=== PATIENT | female | born 1985 ===

== ENCOUNTER → 2017-10-18 15:59 | Outpatient (CLI) | payer OTHER, SELFPAY ==
--- NOTE | 2017-10-18 16:01 | DI.US.S_ITS ---
PROCEDURE: US OB >= 14 WEEKS FETUS INDICATIONS: 20 WEEK ANATOMICAL SURVEY OUTSIDE/PRIOR DATING DATA: Last menstrual period (LMP): 05/30/2017. LMP-based estimated date of delivery (NALLELY): 03/06/2018. First dating scan (date and location): 08/23/2017. Estimated date of delivery (NALLELY) from first dating scan: 03/11/2018. TECHNIQUE: Real-time scanning was performed of the fetus, with image documentation and biometric measurements. Endovaginal scanning: None required COMPARISON: [facility], , OB COMPLETE LESS THAN 14 WKS, 08/23/2017, 10:03. FINDINGS: General: A single living intrauterine gestation is present. Presentation: Vertex. Placenta: Placental position is posterior, without previa. Amniotic fluid index: 16.9 cm, normal range is 5-24 cm. heart rate: 137 beats per minute. Maternal cervical canal: 4.1 cm long. Normal lower limit is 2.5 cm. biometrics: Biparietal diameter: 19 weeks 6 days Head circumference: 19 weeks one day Abdominal circumference: 18 weeks 5 days Femur length: 19 weeks 2 days Estimated gestational age from initial scan: 19 weeks 3 days Composite gestational age from present scan: 19 weeks 2 days, normal growth Estimated weight and percentile: 271 g at the 25th percentile Measurement variability for biometric dating: +/- 7 days from 14 weeks to 15 weeks 6 days gestation, +/- 10 days from 16 weeks to 21 weeks 6 days gestation, +/- 2 weeks from 22 weeks to 27 weeks 6 days gestation, +/- 3 weeks for 28 weeks gestation or later. weight reference: 4500 g or EFW >90/95% is considered macrosomia or large for gestational age. EFW <10% is small for gestational age. EFW 5% or less is considered intra-uterine growth restriction. Anatomic survey: Neuro: Ventricles are non-dilated at less than 10 mm. Cisterna magna is normal at 3-11 mm. Cerebellum is normal in size and morphology. Nuchal skin fold: Normal at less than 6 mm between 14-21 weeks gestational age. Face: Nose and lips, facial profile are normal. Spine: No evidence for spina bifida. Heart: 4-chambered heart is present, with normal ventricular outflow tracts. Diaphragm: Diaphragm is intact. Stomach: Left-sided stomach is present. Kidneys: No hydronephrosis. Normal is less than 5 mm in 2nd trimester, less than 7 mm in 3rd trimester. Cord: 3-vessel cord has orthotopic insertion. Bladder: Normal in size. Extremities: All 4 extremities identified. IMPRESSION: Single, live intrauterine gestation in Vertex lie showing composite gestational age of 19 weeks 2 days, normal growth and normal anatomy. Dictated by: Jamal Zaragoza M.D. on 10/19/2017 at 9:26 Approved by: Jamal Zaragoza M.D. on 10/19/2017 at 9:29
== END ==
PROVIDERS: PCP Family Medicine; Visit Provider Family Medicine
DX: Z34.92 Encounter for supervision of normal pregnancy, unspecified, second trimester (principal); Z3A.19 19 weeks gestation of pregnancy
CPT/HCPCS: 76811

== ENCOUNTER → 2017-10-27 14:23 | Oncology outpatient (ONC) | payer OTHER, SELFPAY ==
[2017-10-27] MEDS: LACTATED RINGERS 1,000 ML 1000 ML IV (15:01)
[2017-10-27 16:06] VITALS: BP 120/65; PULSE 71; RESP 16; TEMP 37.1; O2SAT 100
== END ==
LOC: ONC 14:24
PROVIDERS: PCP Family Medicine; Visit Provider Family Medicine
DX: O21.0 Mild hyperemesis gravidarum (principal)
CPT/HCPCS: 96360

== ENCOUNTER → 2017-11-30 10:54 | Outpatient (CLI) | payer OTHER, SELFPAY ==
[2017-11-30 12:22] LABS: Hematocrit 38.4 % (36-46); Hemoglobin 13.2 g/dL (12.0-16.0)
[2017-11-30 12:45] LABS: GTT (PREG) 1 Hour PP 50gm Dose 111 mg/dL (76-139)
== END ==
PROVIDERS: PCP Family Medicine; Visit Provider Family Medicine
DX: Z34.92 Encounter for supervision of normal pregnancy, unspecified, second trimester (principal); Z3A.26 26 weeks gestation of pregnancy
CPT/HCPCS: 36415; 82950; 85014; 85018

== ENCOUNTER → 2018-02-07 10:12 | Outpatient (CLI) | payer OTHER, SELFPAY ==
[2018-02-08 08:30] LABS: Strep Grp B PCR POS for Grp B Strep
== END ==
PROVIDERS: PCP Family Medicine; Visit Provider Family Medicine
DX: Z3A.36 36 weeks gestation of pregnancy (principal)
CPT/HCPCS: 87653

== ENCOUNTER 2018-03-10 18:11 | Inpatient (IN) | payer OTHER, SELFPAY ==
[2018-03-10 19:15] LABS: Add Manual Diff / Slide Review NO; Basophils Percent Auto 0.3 % (0-2); Eosinophils Percent Auto 0.6 % (2-4); Hematocrit 37.2 % (36-46); Hemoglobin 12.8 g/dL (12.0-16.0); Lymphocytes Percent Auto 18.4 % (25-40); Mean Corpuscular HGB Conc 34.4 % (30-36); Mean Corpuscular Hemoglobin 31.4 PG (26-34); Mean Corpuscular Volume 91.2 fL (80-100); Neutrophils Absolute Auto 6400 /uL (3000-5900); Neutrophils Percent Auto 74.7 % (50-75); Platelet Count 126 X10^3/uL (150-400); Red Blood Cell Count 4.08 X10^6/uL (4.0-5.2); Red Cell Distribution Width 12.6 % (11.6-14.8); White Blood Cell Count 8.6 X10^3/uL (4.5-11.0)
[2018-03-10 19:42] VITALS: BP 111/67
[2018-03-10] MEDS: DINOPROSTONE VAG (CERVIDIL) 10 MG VAG (19:56)
--- NOTE | 2018-03-11 07:30 | PM.OBHP.1 ---
OB HPI Date/Time Date of admission: 03/10/18 Date Patient Seen: 03/11/18 Time Patient Seen: 07:09 History of Present Condition Chief complaint: INDUCTION : 4 Para: 2 Estimated Date of Delivery: 03/06/18 Estimated Gestational Age (weeks): 40+5 Narrative: Anayeli Swenson is a 32 year old at 40+5 week gestation. has been uncomplicated with good care starting at 12 weeks. Colposcopy during for ASCUS +HPV, benign, recommended pap with HPV . Patient took Zoloft throughout the for anxiety. Indications Indication for induction OB: post dates History of Present care: good care, initiated at week # (12), number of visits (12) and pounds weight gain (35 lbs) Dating criteria: LMP confirmed by 1st trimester US Ultrasounds: normal mid trimester US Obstetrical complications: hyperemesis (first and second trimesters) Medical complications: none Preadmission Labs Blood type: O (+) positive -: Antibody screen: negative, GBS status: positive, HBsAG: negative, HIV: negative, HSV 1: positive, HSV 2: negative and RPR/VDLR: negative -: Chlamydia screen: not detected and Gonorrhea screen: not detected -: Rubella: immune and Varicella: immune HCT: 38.4 HCAB: negative PAP: Abnormal Quad screen: Normal Urine: Negative 1 hr GTT: 111 Prior (ies) History: 01/2001 36 weeks, female, 6#7oz, induction for ROM 11/2001 33 weeks, male, 4#3oz, labor for chorio 02/2017 SAB 6 weeks Evaluation Evaluation Baseline heart rate: 120 Variability: Moderate (11-25) monitor accelerations: Present monitor decelerations: Absent Uterine Contraction Intensity: Mild Category of Tracing: I Cervical dilation (cm): 2 Cervical effacement (%): 50 station: -3 Laboratory results: Laboratory Tests 03/10/18 03/10/18 19:05 19:05 WBC 8.6 RBC 4.08 Hgb 12.8 Hct 37.2 MCV 91.2 MCH 31.4 MCHC 34.4 RDW 12.6 Plt Count 126 L Neut % (Auto) 74.7 Lymph % (Auto) 18.4 L [place] % (Auto) 6.0 Eos % (Auto) 0.6 L Baso % (Auto) 0.3 Neut # (Auto) 6400 H Blood Type O Positive Antibody Screen Negative PFSH Medical History Anxiety (Chronic) Family History Brother Mental health problem Mother Age: 60 Hypertension Social History household members: spouse Smoking Status: Never smoker alcohol intake: current well-balanced diet: daily or most days daily servings fruits/ve-1 caffeine: Yes (1-2 caffeine drinks per day) eating out: 1-3 times/week frequency: 3-4 times per week duration: 30-45 minutes/day Meds Home Medications Medication Instructions Recorded Confirmed Type vit-iron fum-folic ac 1 cap PO QDAY #90 cap 07/09/17 Rx [Mynatal] ondansetron [Zofran ODT] 4 mg SUBLINGUAL Q6HP PRN #20 odt 08/13/17 Rx promethazine [Phenergan] 25 mg RC Q6HP PRN #20 tab 08/16/17 Rx sertraline 100 mg tablet 150 mg PO QDAY #90 tab 01/24/18 Rx Allergies Allergy/AdvReac Type Severity Reaction Status Date / Time No Known Drug Allergies Allergy Verified 02/24/18 10:35 Review of Systems Review of Systems All systems reviewed & are unremarkable except as noted in HPI and below Exam Const General: cooperative and healthy appearing [facility] Head: normal to inspection Ears: hearing grossly normal bilaterally Nose: external nose normal Face and sinus: normal facial exam Mouth: oral mucosae normal Throat: posterior oropharynx normal Eyes General: appearance normal, both eyes and all related structures Neck Neck: normal visual inspection Resp Effort & Inspection: normal respiratory effort Auscultation: clear to auscultation bilaterally Cardio Rate: regular rate Rhythm: regular rhythm Heart Sounds: S1 normal, S2 normal and no murmurs GI Other: Gravid External Female Exam: external appearance normal Manual OB Exam: dilated 2, effaced 50% and station (-3) Presentation: vertex Estimated Weight (lbs): 7 Back/Spine/Pelvis Back: normal to inspection Neuro General: alert, awake and oriented x3 Extrem General: normal to inspection and no pedal edema Psych Appearance: grossly normal Objective Labs Result Diagrams: 03/10/18 19:05 Labs: Laboratory Results - last 24 hr 03/10/18 03/10/18 19:05 19:05 WBC 8.6 RBC 4.08 Hgb 12.8 Hct 37.2 MCV 91.2 MCH 31.4 MCHC 34.4 RDW 12.6 Plt Count 126 L Neut % (Auto) 74.7 Lymph % (Auto) 18.4 L [place] % (Auto) 6.0 Eos % (Auto) 0.6 L Baso % (Auto) 0.3 Neut # (Auto) 6400 H Blood Type O Positive Antibody Screen Negative Assessment and Plan (1) 40 weeks gestation of : Current visit: Yes Status: Acute Plan: Plan: 32 year old at 40+5 weeks gestation, GBS positive. Here for postdates induction. s/p Cervadil overnight. Arevalo score of 5. Plan - Start pitocin - GBS prophylaxis - Patient requests epidural eventually
[2018-03-11] MEDS: OXYTOCIN PREMIX 30 UNIT/500 ML PLAST..BAG IV (07:54)
[2018-03-11] MEDS: PENICILLIN G POTASSIUM 5,000,000 UNIT in DEXTROSE 5% IN WATER 250 ML IV (07:54)
[2018-03-11] MEDS: LACTATED RINGERS 1,000 ML 100 ML IV ×2 (07:54→15:31)
[2018-03-11] MEDS: PENICILLIN G POTASSIUM 3,000,000 UNIT/50 ML FROZ.PIGGY 100 UNIT IV ×2 (11:55→16:34)
--- NOTE | 2018-03-11 17:02 | PM.OBPNLAB ---
Date/Time Date Patient Seen: 03/11/18 Time Patient Seen: 17:02 Pain Control Pain control: tolerating well Comments: Just beginning to feel uncomfortable with contractions in the last few minutes. Still quite tolerable. Pelvic Exam Amniotic membrane status: Intact Comments: SVE 2.5/50/-3, cervix is softer though still posterior Contractions Monitor mode: External Pitocin rate (mU/min): 24 Contraction frequency (min): 2 Contraction duration (min): 1 Contraction pattern: Regular Contraction intensity: Mild Status status: Category l Heart Rate Baseline: 130 Monitor Accelerations: Present Monitor Decelerations: Absent Monitor Variability: Moderate Assessment and Plan Assessment: induction ongoing Comments: Patient with slight cervical change on pitocin though not yet in active labor. Continue pitocin. Recheck cervix at 8 pm. If no significant cervical change will turn off pitocin and allow patient to eat then do Cytotec overnight. Plan discussed with nursing.
[2018-03-11] MEDS: ZOLPIDEM 5 MG TABLET PO (21:22)
[2018-03-12] MEDS: miSOPROStol 25 MCG TABLET VAG (00:42)
--- NOTE | 2018-03-12 09:15 | PM.OBPNLAB ---
Date/Time Date Patient Seen: 03/12/18 Time Patient Seen: 08:31 Pain Control Pain control: tolerating well Comments: Slept well overnight. Cytotec placed at midnight and 6:30 AM. Patient reports mild cramping only. Pelvic Exam Comments: SVE 2.5/70/-3 per RN Contractions Contractions on admission: irregular Monitor mode: External Contraction pattern: Irregular Contraction intensity: Mild Status status: Category l Heart Rate Baseline: 130 Monitor Accelerations: Present Monitor Decelerations: Absent Monitor Variability: Moderate Assessment and Plan Assessment: induction ongoing Plan: continuous present management Comments: 32 year old at 40+6 weeks here for postdates induction. S/p 2 doses of Cytotec overnight. Will recheck cervix at 10:30 AM and either give a third dose of Cytotec or restart pitocin.
--- NOTE | 2018-03-12 10:43 | PM.OBPNLAB ---
Date/Time Date Patient Seen: 03/12/18 Time Patient Seen: 10:43 Pain Control Pain control: tolerating well Pelvic Exam Dilation (cm): 3 Effacement (%): 70 station: -3 Amniotic membrane status: Intact Contractions Monitor mode: External Contraction pattern: Irregular Contraction intensity: Mild Assessment and Plan Assessment: induction ongoing Comments: Modest cervical change with Cytotec. Arevalo score of 6. Will start pitocin and AROM when able.
[2018-03-12] MEDS: PENICILLIN G POTASSIUM 3,000,000 UNIT/50 ML FROZ.PIGGY 100 UNIT IV ×3 (15:00→22:26)
--- NOTE | 2018-03-12 17:51 | PM.OBPNLAB ---
Date/Time Date Patient Seen: 03/12/18 Time Patient Seen: 16:30 Pain Control Pain control: tolerating well Pelvic Exam Dilation (cm): 3 Effacement (%): 70 station: -3 Amniotic membrane status: Intact Contractions Monitor mode: External Pitocin rate (mU/min): 12 Contraction frequency (min): 3 Contraction pattern: Regular Contraction intensity: Mild Status status: Category l Heart Rate Baseline: 140 Monitor Accelerations: Present Monitor Decelerations: Absent Monitor Variability: Moderate Assessment and Plan Assessment: induction ongoing Plan: continuous present management Comments:
[2018-03-12] MEDS: LACTATED RINGERS 1,000 ML 150 ML IV (21:15)
--- NOTE | 2018-03-12 22:29 | PM.OBPNLAB ---
Date/Time Date Patient Seen: 03/12/18 Time Patient Seen: 22:20 Pain Control Pain control: tolerating well and epidural Pelvic Exam Dilation (cm): 6 Effacement (%): 80 station: -2 Amniotic membrane status: Ruptured Comments: Contractions Monitor mode: External Contraction frequency (min): 3 Contraction pattern: Regular Contraction intensity: Strong/Firm Status status: Category ll Heart Rate Baseline: 130 Monitor Accelerations: Present Monitor Decelerations: Variable Comments: Early vs late decelerations after SROM and epidural, improved with positioning and oxygen Assessment and Plan Assessment: active labor Plan: continuous present management Comments: Rapid cervical change after SROM with bloody fluid at 8 PM. Doing well with epidural. Expectant management, anticipate Continue GBS prophylaxis
--- NOTE | 2018-03-12 22:55 | PM.OBPNLAB ---
Date/Time Date Patient Seen: 03/12/18 Time Patient Seen: 22:49 Pain Control Pain control: tolerating well and epidural Pelvic Exam Dilation (cm): 9 Effacement (%): 90 station: -1 Amniotic membrane status: Ruptured Contractions Monitor mode: External Pitocin rate (mU/min): 20 Contraction frequency (min): 3 Contraction pattern: Regular Contraction intensity: Strong/Firm Status status: Category ll Heart Rate Baseline: 140 Monitor Accelerations: Present Monitor Decelerations: Late Monitor Variability: Moderate Comments: bloody show Assessment and Plan Assessment: active labor Plan: continuous present management
[2018-03-13] MEDS: LACTATED RINGERS 1,000 ML 150 ML IV (00:08)
--- NOTE | 2018-03-13 00:56 | PM.OBPRVD ---
Delivery date: 03/13/18 Intrapartal events: Deceleration (recurrent deep decerlations to 70s with pushing) Induction method: per pitocin protocol Delivery monitor: external FHT Route of delivery: forceps Indication for instrumentation: nonreassuring FHR tracing Episiotomy description: Midline Laceration description: Perineal - 2nd Degree Delivery repair: vicryl Estimated blood loss (mL): 350 Anesthesia type: Epidural Narrative: VAGINAL DELIVERY NOTE Date 03/13/18 BRIEF HISTORY: Patient is a 32-year-old at 41 weeks who gave on 03/13/18 at 00:17. NALLELY: 03/06/18 Hospital problems: 41 weeks of GBS positive Epidural anesthesia Forcep delivery STAGE I: Labor Induction began with Cervidil on 03/10/18 followed by Pitocin on 03/11/18. Patient received Cytotec the night of 03/11/18 to 03/12/18 and started Pitocin. Active labor began at at 20:12 p.m. SROM occurred at 20:12 with bloody fluid. Patient was complete at 23:13. Stage I duration: 3 hr and 1 min. Patient received an epidural for analgesia. STAGE II: Delivery Patient began pushing at 23:18. There were recurrent deep decelerations with pushing down to the 70's lasting up to 2 minutes with recovery to baseline. Dr. Sandoval was consulted and applied forceps with successful delivery of infants head after midline episiotomy at 00:17 on 03/13/18. Presentation was YAN. The rest of the delivered without difficulty and was placed on mother's abdomen immediately. Apgars were 6 and one minute and 9 at five minutes. was vigorous after delivery. Stage II duration: 59 min. STAGE III: Placenta/Cord Placenta delivered at 00:21 after active management and appeared intact with a three-vessel cord. Pitocin bolus given after delivery. Third stage of labor lasted 4 minutes. Episiotomy with extension to the perineum was repaired with 4-0 vicryl with adequate hemostasis. EBL: 350 ml Needle and sponge counts were correct. The vagina was inspected and no items were left in situ. Patient was doing well with [place], her and at bedside.
[2018-03-13 03:28] VITALS: BP 111/67; PULSE 99; RESP 16; TEMP 36.7
[2018-03-13] MEDS: IBUPROFEN 600 MG TABLET PO ×2 (03:33→13:50)
--- NOTE | 2018-03-13 09:23 | PM.OBPN.1 ---
Subjective - OB Interval history: Patient complains of some right-sided muscle soreness this morning but otherwise feels well. Bleeding is moderate. She has been up to the bathroom and urinated. Tolerating oral intake. Has not yet passed gas. initiated though having some difficulty with latching . Patient comments: pain well controlled and tolerating diet baby status: doing well Date Patient Seen: 03/13/18 Time Patient Seen: 09:10 Exam Vital Signs (past 8 hours): Temperature 99.6? blood pressure 124/71 heart rate 95 respirations 16 Narrative Exam Narrative: General: Awake and alert, no acute distress. HEENT: NCAT, EOMI, moist oral mucosa CV: Regular rate and rhythm, no murmurs, rubs or gallops Lungs: CTAB, no wheezes, rales, or rhonchi Abdomen: Soft, tender to palpation right side of abdomen; bowel tones active; uterus firm 1 cm below umbilicus Extremities: Warm, 1+ edema, 2+ pedal pulses bilaterally Objective Labs Result Diagrams: 03/10/18 19:05 Assessment & Plan (1) 41 weeks gestation of : Status: Acute Current Visit: Yes (2) Forceps delivery: Status: Acute Assessment and plan: day 0 after forceps assisted vaginal delivery for nonreassuring heart tones. Patient doing well. Plan - Routine care - support Current Visit: Yes Time Spent With Patient Total time spent is greater than 50% in coordination of care (as documented) at patient's floor/unit and/or counseling patient: less than 15 minutes
[2018-03-13] MEDS: PRENATAL VIT,CALC/IRON/FOLIC 1 TABLET 1 TAB PO (13:50)
[2018-03-13] MEDS: DOCUSATE 250 MG CAPSULE PO (13:50)
[2018-03-14] MEDS: IBUPROFEN 600 MG TABLET PO ×2 (00:50→08:43)
[2018-03-14 06:03] LABS: Hematocrit 30.4 % (36-46); Hemoglobin 10.7 g/dL (12.0-16.0)
[2018-03-14] MEDS: DOCUSATE 250 MG CAPSULE PO (08:43)
[2018-03-14] MEDS: PRENATAL VIT,CALC/IRON/FOLIC 1 TABLET 1 TAB PO (08:43)
[2018-03-14 10:18] VITALS: BP 111/67; RESP 16; TEMP 36.7
--- NOTE | 2018-03-14 10:36 | PM.OBDS.1 ---
Discharge Providers Date of admission: 03/10/18 18:11 Primary care physician: Meera Langford DO Consults: 03/11/18 07:06 Consult to Anesthesiology Urgent Comment: Consulting Provider: Anesthesiologist Reason for consultation: Pain Management 03/13/18 03:28 Consult to Boiler Mechanic Routine Comment: Discharge provider: Meera Langford DO Discharge Date: 03/14/18 Summary Date Patient Seen: 03/14/18 Time Patient Seen: 10:14 Hospital Course: Patient is a 32 year old [id number] mother s/p forceps assisted vaginal delivery on 03/13/18 at 41 weeks gestation. Patient was brought in for postdates induction. She received Cervadil the night of 03/10/18 followed by pitocin 03/11/18. Given lack of progress with pitocin she was given Cytotec the night of 03/11/18 then started on pitocin again 03/12/18. She progressed rapidly after spontaneous rupture of membranes. Due to deep decelerations with pushing, Dr. Sandoval was consulted and delivered the infant via forceps after episiotomy. did well after delivery and episiotomy was repaired. course has been uncomplicated. going well. Ambulating, voiding, eating and stooling. Bleedin is light. Pain well-controlled with ibuprofen. Counseled patient to call for fevers, severe pain or bleeding through more than a pad an hour. Follow up with Dr. Langford for 6 week visit. Exam General: Well-appearing, NAD CV: RRR, no murmur Lungs: CTAB Abdomen: Soft, NT/ND, bowels active. Uterus firm <1 cm below umbilicus Ext: 1+ edema bilaterally Temperature 98.3 BP 124/79 Pulse 74 Peripartum Data Infant Delivery Method: Assisted Delivery (Forceps) Laceration description: Perineal - 2nd Degree Episiotomy description: Midline complications: none Discharge Diagnosis (1) 41 weeks gestation of : Status: Acute (2) Forceps delivery: Status: Acute Status at Discharge Functional status at discharge: independent ambulation Overall status at discharge: patient is back to baseline Time Spent with Patient Total time spent providing and/or coordinating discharge services: Less than 30 minutes Objective Labs Result Diagrams: 03/14/18 05:52 Labs: Laboratory Results - last 24 hr 03/14/18 05:52 Hgb 10.7 L Hct 30.4 L Discharge Plan Discharge Plan Patient Disposition: Home Discharge Med Rec/Prescriptions Prescriptions: New docusate sodium 250 mg Capsule 250 mg PO DAILY Qty: 30 RF: 0 Continue vit-iron fum-folic ac [Mynatal] 1 EACH capsule 1 cap PO QDAY Qty: 90 RF: 3 ondansetron [Zofran ODT] 4 MG tablet,disintegrating 4 mg Sublingual Q6HP PRNQty: 20 RF: 3 promethazine [Phenergan] 25 MG suppository 25 mg RC Q6HP PRNQty: 20 RF: 3 sertraline 100 mg tablet 150 mg PO QDAY Qty: 90 RF: 3 Follow up/Referrals: Meera Langford DO [Primary Care Provider] - 6 Weeks (Follow up with Dr. Langford on 04-25-2018 at 1:15 pm ) Visit Report/Discharge Packet Stand Alone Forms: Discharge: Care Visit Report Forms: Stroke Signs & Symptoms Discharge Data Primary Care Provider: Meera Langford Attending Provider: Meera Langford Admit Date/Time: 03/10/18 18:11 Discharges patient from system. Discharge Date/Time: 03/14/18 11:40
== END 2018-03-14 11:40 | disposition home or self-care (01) | DRG 807 ==
PROVIDERS: Admitting Provider Family Medicine; PCP Family Medicine; Visit Provider Family Medicine
DX: O48.0 Post-term pregnancy (principal); Z37.0 Single live birth; O99.824 Streptococcus B carrier state complicating childbirth; Z3A.40 40 weeks gestation of pregnancy; O76 Abnormality in fetal heart rate and rhythm complicating labor and delivery; O70.1 Second degree perineal laceration during delivery
CPT/HCPCS: 01967; 36415; 59050; 59400; 85014; 85018; 85025; 86850; 86900; 86901; J2540; J2590

== ENCOUNTER → 2018-04-25 14:00 | Outpatient (CLI) | payer OTHER, SELFPAY ==
[2018-04-25 17:33] LABS: Urine N gonorrhoeae NOT DETECTED
[2018-04-25 17:59] LABS: Urine Chlamydia NOT DETECTED
== END ==
PROVIDERS: PCP Family Medicine; Visit Provider Family Medicine
DX: Z39.2 Encounter for routine postpartum follow-up (principal); Z97.5 Presence of (intrauterine) contraceptive device
CPT/HCPCS: 87491; 87591

== ENCOUNTER → 2019-01-03 09:31 | Outpatient (CLI) | payer OTHER, SELFPAY ==
--- NOTE | 2019-01-03 09:33 | DI.RAD.S_ITS ---
PROCEDURE: XR ANKLE RT MIN 3V INDICATIONS: Right ankle TECHNIQUE: 3 views of the ankle were acquired. COMPARISON: None. FINDINGS: Bones: No fractures or dislocations. Ankle mortise is normally aligned. No suspicious bony lesions. Soft tissues: No tibiotalar joint effusion. Achilles tendon appears normal. IMPRESSION: Normal for age, source of current right ankle pain symptoms is not seen. Dictated by: Mikael Kennedy M.D. on 01/03/2019 at 10:08 Approved by: Mikael Kennedy M.D. on 01/03/2019 at 10:09
== END ==
PROVIDERS: PCP Family Medicine; Visit Provider Nurse Practitioner Family
DX: M25.571 Pain in right ankle and joints of right foot (principal)
CPT/HCPCS: 73610

== ENCOUNTER → 2022-02-25 09:00 | Outpatient (CLI) | payer SELFPAY | PROVIDERS: Referring Provider Internal Medicine; Visit Provider Internal Medicine | DX: Z23 Encounter for immunization (principal) | CPT/HCPCS: 90471; 90686 ==

== ENCOUNTER → 2022-05-06 13:50 | Outpatient (CLI) | payer OTHER, SELFPAY ==
[2022-05-06 17:17] LABS: COVID19 -Nasal RAPID Negative (Negative)
== END ==
PROVIDERS: PCP Family Medicine; Visit Provider Obstetrics & Gynecology
DX: Z20.822 Contact with and (suspected) exposure to COVID-19 (principal); Z01.812 Encounter for preprocedural laboratory examination
CPT/HCPCS: 87635

== ENCOUNTER 2022-05-07 14:37 | Day surgery (SDC) | payer OTHER, SELFPAY ==
[2022-05-06 10:51] VITALS: BMI 30.6
[2022-05-07] VITALS (8 sets, daily range): BP systolic 120–144; BP diastolic 78–109; PULSE 75–100; RESP 14–23; TEMP 36.1–36.6; O2SAT 98–100
--- NOTE | 2022-05-07 | PATH_ITS ---
[facility] Accession Number: [id number] . 01 Material submitted: . PART A: cervix - CONE BIOPSY 3 O'CLOCK ENDOCERVICAL PART B: endocervix - ENDOCERVICAL CURETTAGE . 01 Diagnosis: A. 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 Background low-grade squamous intraepithelial lesion (mild dysplasia/RANI-1). Negative for invasive malignancy. . B. Endocervix, Curettage: Detached strips of dysplastic glandular epithelium, consistent with endocervical adenocarcinoma in situ. V 05/13/2022 1413 Local . 01 Electronically signed: . Oneida Vega MD, Pathologist NPI- [id number] . 01 Gross description: . A. Received in formalin, labeled with the patient's name, , and cone biopsy 3 o'clock, and consists of a circular fragment of cervix with a partially incised area at one edge presumably designating 3 o'clock per the requisition. The specimen measures 2.0 cm from 12 o'clock to 6 o'clock, 2.1 cm from 3 o'clock to 9 o'clock, and is excised to a depth of 1.6 cm. The ectocervix is little, smooth, and glistening. The cervical os is slit-like and measures 1.0 cm in diameter. The endocervical margins are inked orange while the remaining stromal margins are inked blue. The specimen is radially sectioned and submitted entirely as follows: A1: 12-3 o'clock. A2: 3-6 o'clock. A3: 6-9 o'clock. A4: 9-12 o'clock. See diagram. B. Received in formalin, labeled with the patient's name, and endocervical curettings, and consists of multiple little soft tissue fragments admixed with hemorrhagic material aggregating to 3.4 x 1.5 x 0.4 cm. The specimen is filtered into a biopsy bag and submitted entirely in cassette B1. ([id number]) /FRR 05/09/2022 1801 Local . 01 Pathologist provided ICD-10: D06.9 . 01 CPT . 371763, [id number] Specimen Comment: A courtesy copy of this report has been sent to [phone] Performed at: 01 [facility] Cytology [address] [place] [address] [address], [place], [place] [id number] MD Rayshawn Márquez MD Phone: [phone]
[2022-05-07] MEDS: LACTATED RINGERS 1,000 ML 42 ML IV (15:04)
--- NOTE | 2022-05-07 16:10 | PM.PREOP ---
Pre-operative Note COVID-19 COVID-19 status: Negative Result date/Date tested (Pos, Neg/Pending): 05/06/22 Criteria for continued procedure: Non-surgical alternatives not available or appropriate per current SOC Interval Note History & Physical reviewed/Exam performed by Physician: Yes Changes to H&P: No
--- NOTE | 2022-05-07 16:36 | SUR.OPER ---
Lithotomy on padded OR bed, head on pillow, arms secured on padded arm boards at <90 degrees abduction. Legs secured in padded yellow fins stirrups.
[2022-05-07] MEDS: ACETIC ACID 500 ML IRRIG 20 ML TOP (16:39)
--- NOTE | 2022-05-07 17:17 | PM.GYNOP.1 ---
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 Her HPV status has been positive dating back all the way to 2017 with cytology at that time showing AGC-US.? Pap smear in 2018 showed ASC-US later in 2018 her Pap was normal but both were positive for HR HPV.? She has not has a Pap performed since late 2018 until her most recent Pap 03/17/2022.? Colposcopy showed no ectocervical lesions but dense AWE seen in the endocervical canal and ECC demonstrated ?at least? adenocarcinoma in-situ.? After discussion regarding all options, patient is undergoing cold knife conization at this time for this endocervical lesion both as treatment and to rule out the presence of invasive or microinvasive adenocarcinoma of the endocervix.? She presents today for her scheduled surgery. Surgeon: Yash Lindsey Anesthesia Type: General Operative Notes Findings: Patulous cervix without visible lesions. Patient is currently menstruating. IUD strings placed up in KING and retrieved following conization/ECC. Closure Type: not applicable Specimen(s): other (Cone biopsy, ECC) Estimated blood loss (mL): 75 Blood products transfused: none Procedure in detail: With the patient under satisfactory general LMA, in the modified dorsal lithotomy position, the perineum and lower abdomen were prepped and draped in the usual fashion for cold knife conization. A pre-surgical safety time-out was then taken in accordance with [facility] OR protocols. A bivalve speculum was then inserted in the vagina and the cervix was visualized. The anterior lip the cervix was grasped with a single-tooth tenaculum and hemostatic sutures of #1 Chromic catgut were placed at 3, 6, and 9:00. Sharp conization was then carried out with a #11 Blade with an angled knife handle. Specimen obtained was submitted in formalin for pathologic evaluation. ECC was then performed and also submitted as a separate pathologic specimen. Electrocautery was then used to coagulate the cone bed and once fully coagulated with no bleeding points evident, the IUD strings were brought down through the endocervical canal. Surgicel was then sewn into place 1st tying the sutures at 3:00 and 9:00, and then anchoring Surgicel with the 6:00 suture. There was no significant bleeding at the completion of the case and the speculum was then removed along with the single-tooth tenaculum. Patient was then awakened from anesthesia and transferred PACU after having tolerated the procedure well. Complications: none Post-operative Condition: stable Disposition: PACU Plan for aftercare: Routine postoperative care and follow-up scheduled for 2 weeks postop. Patient will be notified of Path results when available with further decisions regarding evaluation/treatment based on the findings from the cone and ECC.
[2022-05-07] MEDS: ACETAMINOPHEN 325 MG TABLET 975 MG PO (17:46)
[2022-05-07] MEDS: OXYCODONE IR 5 MG TABLET PO (17:47)
== END 2022-05-07 18:09 | disposition home or self-care (01) ==
PROVIDERS: PCP Family Medicine; Referring Provider Obstetrics & Gynecology; Visit Provider Obstetrics & Gynecology
PROC: 0UBC7ZZ Excision of Cervix, Via Natural or Artificial Opening (ICD-10-PCS; CPT 57520; principal; 2022-05-07 16:00)
DX: D06.0 Carcinoma in situ of endocervix (principal)
CPT/HCPCS: 57520; 57250; J1885; J2250; J2405; J2704; J3010

== ENCOUNTER 2022-07-16 12:17 | Day surgery (SDC) | payer OTHER, SELFPAY ==
[2022-07-13 08:19] VITALS: BMI 31.2
[2022-07-16 12:38] VITALS: BP 114/76; PULSE 92; RESP 20; TEMP 36.7; O2SAT 97; BMI 30.5
[2022-07-16] MEDS: LACTATED RINGERS 1,000 ML 42 ML IV (12:52)
[2022-07-16 12:54] LABS: COVID19 -Nasal RAPID POSITIVE (Negative)
--- NOTE | 2022-07-16 13:10 | SUR.PREOP ---
Per Lab, patient testing positive for COVID; notified patient and notified Dr Lindsey; surgery canceled due to positive Covid status and non-emergent need. OR coordinator notified. Inpatient nursing staff notified.
== END 2022-07-16 12:20 | disposition home or self-care (01) ==
LOC: OR 12:18
PROVIDERS: PCP Family Medicine; Referring Provider Obstetrics & Gynecology; Visit Provider Obstetrics & Gynecology
DX: D06.0 Carcinoma in situ of endocervix (principal); Z53.09 Procedure and treatment not carried out because of other contraindication; U07.1 COVID-19
CPT/HCPCS: 81025; 87635

== ENCOUNTER 2022-08-20 12:02 | Day surgery (SDC) | payer OTHER, SELFPAY ==
[2022-08-12 15:01] VITALS: BMI 31.2
[2022-08-20] VITALS (11 sets, daily range): BP systolic 128–151; BP diastolic 76–90; PULSE 64–93; RESP 11–18; TEMP 36.1–36.8; O2SAT 93–100; BMI 31.2
--- NOTE | 2022-08-20 | PATH_ITS ---
[facility] Accession Number: [id number] No. of containers..01 Tissue . 01 Material submitted: . uterus - UTERUS, BILATERAL FALLOPIAN TUBES, CERVIX . 01 Diagnosis: Uterus, Cervix And Bilateral Fallopian Tube, Hysterectomy And Bilateral Salpingectomy: 1. 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 2. Size: 0.9 X 0.5 cm (as measured on glass slide). 3. Stromal invasion: 5.5 mm and involving two blocks. 4. Lymphovascular invasion: Suspicious for lymphovascular invasion. 5. Margins: All margins are negative for invasive adenocarcinoma and adenocarcinoma in situ (AIS). 6. Additional findings: Proliferative endometrium; no atypical hyperplasia or malignancy. Complete cross-section of bilateral fimbriated fallopian tubes with benign paratubal cysts. 7. Pathologic stage: pT1b- Invasive carcinoma greater than 5 mm depth of stromal invasion and less than or equal to 2 cm in greatest dimension. 8. See comment. TEN 08/27/2022 1147 Local . 01 Comment: The invasive adenocarcinoma is present in slides A2 and A9 (around the 12 o'clock region) and shows well-demarcated glands in groups with rounded contours. There is complex intraglandular growth with a papillary architecture. Intraluminal necrosis is noted. In addition, there are few atypical glands and small groups of malignant cells from the rounded glands in a focally desmoplastic and inflamed stroma. A focus suspicious for lymphovascular invasion is identified on slide A2. The Romeo pattern of invasion is best interpreted as Type B i.e localized/focal stromal invasion. As part of routine quality inspector, selected slides (A2 and A9) were also reviewed by Dr. Stella Avina, who agrees with the interpretation. . 01 Electronically signed: . Jyoti B Katelynn, MD, Pathologist NPI- [id number] . 01 Gross description: . The specimen is received in formalin labeled with the patient's name, , and uterus, bilateral fallopian tubes, cervix consists of an intact uterus (160 grams, 10.3 cm SI, 7.1 cm ML, and 5.0 cm AP) with attached cervix (3.0 x 2.7 cm), attached left fallopian tube (6.8 x 0.7 cm), attached right fallopian tube (6.7 x 0.9 cm), and no additional adnexa. The ectocervix is little and glistening with a linear defect at the approximate 2 o'clock area measuring 0.7 x 0.3 cm. The cervical os is patulous and measures 0.7 cm in diameter. The anterior paracervical margin is inked blue while the posterior paracervical margin is inked black. The serosa is raymond-little and smooth with no hemorrhage or adhesion identified. The endocervical canal has little herringbone mucosa with no lesions grossly identified, and measures 2.4 cm in length. The endometrial cavity measures 3.3 cm from cornu to cornu and 5.2 cm in length, and is significant for a plastic T-shaped device with dark coiled wire consistent with IUD measuring 3.2 cm across the crossbar and 3.5 cm in length. The placement has the crossbars extending from cornu to cornu and the body extending down into the endometrial cavity. Two wires extend from the end but are found coiled in the endometrial cavity, not extending down into the endocervical cavity. The endometrium is red, hemorrhagic, and averages 0.1 cm thick, and is friable with no polyps or lesions identified. The myometrium is pink to red and trabecular measuring up to 2.1 cm in maximum thickness with no nodules or lesions grossly identified. . . The left fallopian tube has congested smooth serosa with multiple cystic structures near the fimbriated end measuring up to 1.1 cm in greatest dimension filled with clear serous fluid. Sectioning reveals a hemorrhagic stellate lumen. The right fallopian tube has congested smooth serosa with multiple cystic structures measuring up to 0.4 cm in greatest dimension filled with clear serous fluid. Sectioning reveals an unremarkable stellate lumen. . Sheet [employer] sections are submitted as follows: A1-A2: 12 to 3 o'clock cervix. A3-A4: 3 to 6 o'clock cervix. A5-A7: 6 to 9 o'clock cervix. A8-A9: 9 to 12 o'clock cervix. A10: Anterior full-thickness section. A11: Posterior full-thickness section. A12: Sheet [employer] Printer serosa. A13: Left fallopian tube to include one-half of bisected fimbriae and cross-sections. A14: Right fallopian tube to include one-half of bisected fimbriae and cross-sections. ([id number]) /MRV 08/21/2022 1718 Local . 01 Microscopic: . P16 immunostain is strongly and diffusely positive within the invasive adenocarcinoma and adenocarcinoma in situ. Control stains appropriately. . Technical Note: This test and its performance characteristics have been determined by [facility]. It has not been cleared or approved by the U.S. Food and Drug Administration. The FDA has determined that such clearance or approval is not necessary. This test is used for clinical purposes. It should not be regarded as investigational or for research. . 01 Pathologist provided ICD-10: D06.9, N93.9, C53.0 . 01 CPT . 887374 Specimen Comment: A courtesy copy of this report has been sent to [phone] Performed at: 01 [facility] [address] [place] [address], [place], [place] [id number] MD Rayshawn Márquez MD Phone: [phone]
[2022-08-20] MEDS: LACTATED RINGERS 1,000 ML 42 ML IV ×2 (12:29→16:00)
[2022-08-20] MEDS: ACETAMINOPHEN IV 1,000 MG/100 ML VIAL 400 MG IV (12:31)
[2022-08-20] MEDS: SCOPOLAMINE 1 PATCH TOP (12:36)
--- NOTE | 2022-08-20 13:17 | SUR.PREOP ---
Refuses test, has IUD, states has not had intercourse in a long time. ROUTE AIDE and Dr. Olmos notified.
[2022-08-20 13:37] LABS: COVID19 -Nasal RAPID Negative (Negative)
--- NOTE | 2022-08-20 13:42 | P.HPOB_ITS ---
History of Present Illness History of Present Illness Narrative: Anayeli is a 36-year-old 5 para 3, LMP 08/09/2022 who was originally seen for a Pap demonstrated high-grade squamous dysplasia of the cervix.? Colposcopic exam and ECC showed at least adenocarcinoma in-situ of the endocervix and patient subsequently underwent cold knife conization which confirmed adenocarcinoma in-situ but endocervical margins were positive.? After discussion regarding all options patient has decided to proceed with total laparoscopic hysterectomy and bilateral salpingectomy.? She presents today for her scheduled surgery. [facility] Medical History (Updated 05/15/22 @ 11:41 by Yash Lindsey MD) Adenocarcinoma in situ (AIS) of uterine cervix Anxiety Surgical History (Updated 07/13/22 @ 08:22 by Alyssa Lincoln RN) History of conization of cervix (05/07/22) Family History Brother Mental health problem Mother Age: 65 Hypertension Social History household members: spouse and children Smoking Status: Never smoker alcohol intake: current well-balanced diet: daily or most days daily servings fruits/ve-1 caffeine: Yes (1-2 caffeine drinks per day) eating out: 1-3 times/week frequency: 3-4 times per week duration: 30-45 minutes/day Meds Home Medications and Allergies Allergies Allergy/AdvReac Type Severity Reaction Status Date / Time No Known Drug Allergies Allergy Verified 07/16/22 12:40 Review of Systems Review of Systems Narrative: Problem-specific ROS positives included in HPI Exam Vital Signs (past 8 hours): - 08/20/22 12:19 Temperature 97.8 F Pulse Rate 93 H Respiratory Rate 16 Blood Pressure 128/80 Pulse Oximetry 97 Const General: cooperative and comfortable Nutritional Appearance: average body habitus Orientation: alert and oriented x3 HENMT Head: normal to inspection, atraumatic and abrasion Ears: hearing grossly normal bilaterally Face and sinus: face symmetric Eyes General: appearance normal, both eyes and all related structures Conjunctivae: conjunctivae normal Sclera: sclerae normal EOM: EOM intact bilaterally Neck Neck: normal visual inspection Resp Effort & Inspection: normal respiratory effort and able to speak in complete sentences Auscultation: clear to auscultation bilaterally Cardio Rate: regular rate Rhythm: regular rhythm Heart Sounds: S1 normal, S2 normal and no murmurs GI Inspection: normal to inspection Palpation: soft and no hepatosplenomegaly External Female Exam: normal external appearance Speculum Exam - Vagina: normal appearance of the vagina, normal vaginal discharge and no lesions Speculum Exam - Cervix: no lesions, no masses and other (S/P CKC changes) Bimanual Exam- Vagina & Uterus: normal bimanual exam, uterine size normal, uterine shape normal, non-tender and no cervical motion tenderness Bimanual Exam- Adnexa, other: normal adnexae, no masses and non-tender Extrem General: no calf tenderness Psych Appearance: grossly normal Mental Status: mental status grossly normal Speech and Movement: speech and movement normal Mood: congruent mood Affect: normal affect Attitude: cooperative Thought Process: normal Thought Content: normal Judgment: judgment good Objective Labs Labs: Laboratory Results - last 24 hr 08/20/22 12:12 SARS-CoV-2 (PCR) Negative Assessment & Plan Assessment and plan (1) 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 Full understanding of the above, a written consent was executed, signed, and witnessed this date. Time Spent With Patient Time with patient: less than 30 minutes
--- NOTE | 2022-08-20 13:46 | PM.PREOP ---
Pre-operative Note COVID-19 COVID-19 status: Negative Result date/Date tested (Pos, Neg/Pending): 08/20/22 Criteria for continued procedure: Non-surgical alternatives not available or appropriate per current SOC Interval Note History & Physical reviewed/Exam performed by Physician: Yes Changes to H&P: No
[2022-08-20] MEDS: CEFAZOLIN 2 GM/100 ML PREMIX 100 ML IV ×2 (13:59→20:39)
--- NOTE | 2022-08-20 14:23 | SUR.OPER ---
Lithotomy on padded OR bed. Wamic Pad Positioner under torso. Head on pillow, arms padded and tucked at sides. Legs secured in padded yellow fins stirrups. Pt positioned per direction and supervision of Dr Lindsey.
[2022-08-20] MEDS: ROPIVACAINE 0.2% PF 2 MG/ML 10ML AMP 20 ML INJ (14:28)
[2022-08-20] MEDS: BUPIVACAINE 0.25% W/ EPI 30 ML VIAL INJ (14:30)
[2022-08-20] MEDS: OXYCODONE IR 5 MG TABLET PO ×2 (17:00→20:17)
--- NOTE | 2022-08-20 17:01 | P.OP_ITS ---
Operative Date/Time/Diagnoses Date of procedure: 08/20/22 Time of procedure: 14:15 Pre-op diagnosis: Adenocarcinoma in-situ of the endocervix Stress urinary incontinence Post-op diagnosis: same Procedure & Clinicians Procedure: Procedures Operation Date: 08/20/22 13:30 Actual Procedure Side Surgeon p Total Laparoscopic Hysterectomy w. bilateral salpingectomy, Bilateral Yash Lindsey MD s mid-urethral sling, cystoscopy Yash Lindsey MD Indications: Anayeli is a 36-year-old 5 para 3, LMP 08/09/2022 who was originally seen for a Pap demonstrated high-grade squamous dysplasia of the cervix.? Colposcopic exam and ECC showed at least adenocarcinoma in-situ of the endocervix and patient subsequently underwent cold knife conization which confirmed adenocarcinoma in-situ but endocervical margins were positive.? After discussion regarding all options patient has decided to proceed with total laparoscopic hysterectomy and bilateral salpingectomy.? She presents today for her scheduled surgery. In addition the patient has history of progressive stress urinary incontinence and after discussion regarding options for therapy, the patient is undergoing mid urethral sling placement with cystoscopy. Surgeon: Yash Lindsey Parts Interpreter: Regi Michel Anesthesia Type: General Operative Notes Findings: The uterus is upper limits of normal size without focal abnormality. Anterior cul-de-sac and posterior cul-de-sac are unremarkable. Both fallopian tubes and ovaries are also normal. The left ovary contains a corpus luteum cyst. The appendix appears normal and the upper abdomen is normal to laparoscopic visualization. The bladder is also normal 2 cystoscopic visualization with vigorous streams of urine coming from each ureteral meatus. There is some metaplastic change of the trigone but otherwise the bladder is unremarkable. Closure Type: primary Specimen(s): left tube, right tube and uterus Applied: catheter Estimated blood loss (mL): 200 Blood products transfused: none Procedure in detail: With the patient in modified dorsal lithotomy position preparations were made by prepping and draping the patient in usual manner for vaginal surgery and insertion of Santana catheter. A pre-surgical time-out was then taken in accordance with [facility] policy. A Santana catheter was inserted in the bladder. A bivalve speculum was then placed in the vagina and the cervix visualized. The anterior lip of the cervix was then grasped with a single-tooth tenaculum. The uterus was sounded to 9 cm, the endocervical canal dilated slightly, and a VCare uterine manipulator with a medium colpotomy cup was placed. The umbilicus was then infiltrated with 0.5% Marcaine with epinephrine. A 1 cm umbilical incision was made transversely and a Veress needle was used to insufflate the abdominal cavity with carbon dioxide. Once the abdomen was appropriately insufflated, a 5 mm trocar and sleeve were then placed through the umbilical incision. The scope was placed through the trocar and the initial assessment of the intra-abdominal contents carried out. A 2nd and 3rd 5 mm port was then placed 1st in the right mid quadrant from then the left mid quadrant by infiltration of the skin and subcutaneous tissues, a 1 cm transverse incision and insertion of the 5 mm bladeless port. Using a 3 puncture technique, the abdomen and pelvis were inspected laparoscopy and photographically documented. Uterus is mobilized with the VCare manipulator and attention turned to the left adnexa. The distal tube was then grasped and the fimbria varicose divided after coagulation with the PowerSeal device. The dissection was then carried out toward the cornua and the fallopian tube amputated. The tube was removed through a 5 mm port and dissection was then carried down using the PowerSeal device so as to divide the utero-ovarian ligament and the round ligament with blunt and sharp dissection of the broad down to the level of the uterine artery. The uterine artery was then skeletonized after development of a bladder flap, coagulated, and divided. Once hemostasis was assured on the left side attention was turned to the right and the tube, utero-ovarian ligament, round ligament, and broad ligament were dissected in a fashion exactly the same as it had been on the left. The right uterine artery was then visualized after skeletonization and coagulated and divided. The uterus was seen to [place] after coagulation of both your arteries and the cup was identified through the vaginal muscularis at its insertion with the body of the cervix. Circumferential excision of the vaginal cup was accomplished without difficulty using monopolar current and the uterus mobilized. The uterus was then removed through the vagina and the vaginal cuff closed [id number] with a series of 0 Vicryl [id number] stitches. Hemostasis was excellent, the abdomen was re-insufflated, and the pelvis inspected laparoscopically. An area of persistent oozing on the right side of the vaginal cuff was noted and initially could not be controlled with judicious use of bipolar current. Preparations were made for placement of laparoscopic stitches for hemostasis and a 1 cm incision was made deep in the RLQ. Before the trocar was placed however the source of the oozing was identified and secured with the Power Seal device. The pelvis was inspected again for any abnormality or bleeding, and the ureters were each seen to be peristalsing freely. With complete hemostasis assured, the pneumoperitoneum was vented and the ports removed. All of the 5 mm ports incisions were then closed with 4-0 Monocryl on the skin using inverted interrupted sutures. Skin glue was placed and after the glue was dried, an appropriate dressing was applied. Attention was then turned to performance of the mid urethral sling placement. The patient was repositioned and a weighted speculum was placed in the vagina. The mid urethra was identified by palpation of the Santana bulb and the vaginal mucosa underlying the mid urethra was infiltrated with 0.5% Marcaine with epinephrine. A 2 cm longitudinal incision of the vaginal mucosa was then made with the scalpel and dissection laterally on both sides was carried out with Metzenbaum scissors. The retropubic tension-free vaginal tape was then introduced 1st on the right side and then the left and both were brought out through the skin of the mons on either side of the midline. The TVT was then from the trochars used for introduction and appropriately tension. Plastic sleeve was then removed, redundant portion of TVT excised, and final positioning determined to be correct. The vaginal mucosa was then closed with 2-0 chromic in a running interlocking stitch. Retropubic pressure was held for proximally 5 minutes both digitally and with sponge sticks. Minimal bleeding was noted. The weighted speculum was then removed from the vagina, the case was then terminated, the patient awakened, and then transferred to PACU after having tolerated the procedure well. Complications: none Post-operative Condition: stable Disposition: PACU Plan for aftercare: Routine post-op care.
[2022-08-20] MEDS: LACTATED RINGERS 1,000 ML 100 ML IV (17:30)
[2022-08-20] MEDS: MORPHINE 4 MG/ML INJ IV (17:33)
[2022-08-20] MEDS: DOCUSATE 100 MG CAPSULE 200 MG PO (20:58)
[2022-08-21] VITALS: BP 123/74; PULSE 79; RESP 18; TEMP 37.2; O2SAT 95
[2022-08-21] MEDS: OXYCODONE IR 5 MG TABLET PO ×4 (00:22→12:52)
[2022-08-21] MEDS: MORPHINE 4 MG/ML INJ IV ×2 (00:58→07:37)
[2022-08-21 04:55] VITALS: BP 137/83; PULSE 74; RESP 18; TEMP 36.9; O2SAT 98
[2022-08-21 06:25] LABS: Add Manual Diff / Slide Review NO; Basophils Absolute Auto 0 /uL (0-100); Eosinophils Absolute Auto 0 /uL (0-450); Hematocrit 33.2 % (36-46); Hemoglobin 11.4 g/dL (12.0-16.0); Lymphocytes Absolute Auto 900 /uL (1100-4500); Mean Corpuscular HGB Conc 34.4 % (30-36); Mean Corpuscular Hemoglobin 29.7 PG (26-34); Mean Corpuscular Volume 86.5 fL (80-100); Monocytes Absolute Auto 600 /uL (0-900); Monocytes Percent Auto 4.6 % (3-14); Neutrophils Absolute Auto 11700 /uL (1500-7000); Neutrophils Percent Auto 88.4 % (50-75); Platelet Count 169 X10^3/uL (150-400); Red Blood Cell Count 3.83 X10^6/uL (4.0-5.2); Red Cell Distribution Width 12.9 % (11.6-14.8); White Blood Cell Count 13.2 X10^3/uL (4.5-11.0)
[2022-08-21 07:55] VITALS: BP 125/82; PULSE 76; RESP 16; TEMP 37.1; O2SAT 96
[2022-08-21] MEDS: DOCUSATE 100 MG CAPSULE 200 MG PO (08:23)
[2022-08-21] MEDS: ACETAMINOPHEN 325 MG TABLET 650 MG PO (09:09)
[2022-08-21 11:30] VITALS: BP 117/61; PULSE 86; RESP 18; TEMP 36.9; O2SAT 96
--- NOTE | 2022-08-21 12:39 | PM.DS.1 ---
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 Details of the procedure well summarized on my dictated operative note of that date. Following surgery the patient has done extremely well with prompt return of bowel and bladder function, she is ambulating independently, tolerating regular diet, and her pain is well controlled with oral pain medications. She is voiding well following removal of her catheter and she has a negligible postvoid residual. She will be discharged at this time to home in an afebrile normotensive condition after counseling regarding precautionary symptoms, limitations of activity, medications, and plans for follow-up which will be in 2 weeks. Medications at discharge will include resumption of any pre surgical medications, oxycodone 5 mg every 6 hours as needed for pain dispense 20 with no refills, and Cipro 500 mg p.o. b.i.d. x5 days for urinary tract prophylaxis. Status at Discharge Cognitive/behavioral status at discharge: oriented Functional status at discharge: independent ambulation Overall status at discharge: patient is progressing back to baseline Time Spent with Patient Time spent: Less than 30 minutes Exam Vital Signs (past 8 hours): - 08/21/22 04:55 08/21/22 07:55 08/21/22 11:30 Temperature 98.5 F 98.8 F 98.5 F Pulse Rate 74 76 86 Respiratory Rate 18 16 18 Blood Pressure 137/83 125/82 117/61 Pulse Oximetry 98 96 96 Oxygen Flow Rate 1.5 0 0 Oxygen Delivery Method Room Air Oxygen Flow Rate 0 Const General: cooperative and comfortable Nutritional Appearance: average body habitus Orientation: alert and oriented x3 HENMT Head: normal to inspection, atraumatic and abrasion Ears: hearing grossly normal bilaterally Face and sinus: face symmetric Eyes General: appearance normal, both eyes and all related structures Conjunctivae: conjunctivae normal Sclera: sclerae normal EOM: EOM intact bilaterally Neck Neck: normal visual inspection Resp Effort & Inspection: normal respiratory effort and able to speak in complete sentences Auscultation: clear to auscultation bilaterally Cardio Rate: regular rate Rhythm: regular rhythm Heart Sounds: S1 normal, S2 normal and no murmurs GI Inspection: normal to inspection and incision (Surgical dressings clean and dry) Palpation: soft, no hepatosplenomegaly and tender (Mild, diffuse postsurgical tenderness) External Female Exam: other (No significant bleeding noted) Extrem General: no calf tenderness Psych Appearance: grossly normal Mental Status: mental status grossly normal Speech and Movement: speech and movement normal Mood: congruent mood Affect: normal affect Attitude: cooperative Thought Process: normal Thought Content: normal Judgment: judgment good Objective Labs 08/21/22 05:10 Labs: Laboratory Results - last 24 hr 08/20/22 08/21/22 12:12 05:10 WBC 13.2 H RBC 3.83 L Hgb 11.4 L Hct 33.2 L MCV 86.5 MCH 29.7 MCHC 34.4 RDW 12.9 Plt Count 169 Neut % (Auto) 88.4 H Lymph % (Auto) 7.0 L [place] % (Auto) 4.6 Eos % (Auto) 0.0 L Baso % (Auto) 0.0 Neut # (Auto) 96549 H Lymph # (Auto) 900 L [place] # (Auto) 600 Eos # (Auto) 0 Baso # (Auto) 0 SARS-CoV-2 (PCR) Negative [facility] Medical History (Updated 05/15/22 @ 11:41 by Yash Lnidsey MD) Adenocarcinoma in situ (AIS) of uterine cervix Anxiety Surgical History (Updated 07/13/22 @ 08:22 by Alyssa Lincoln RN) History of conization of cervix (05/07/22) Family History Brother Mental health problem Mother Age: 65 Hypertension Social History household members: spouse and children Smoking Status: Never smoker alcohol intake: current well-balanced diet: daily or most days daily servings fruits/ve-1 caffeine: Yes (1-2 caffeine drinks per day) eating out: 1-3 times/week frequency: 3-4 times per week duration: 30-45 minutes/day Discharge Plan Discharge Plan Patient Disposition: Home Provider Discharge Comment: Please review the written instructions you received when you were discharged from the hospital. Your postop visit is scheduled for 2 weeks following your surgery and I look forward to seeing you then. If however in the meanwhile you have any issues, concerns, or questions, please contact me either through the office phone at [phone], or via the patient portal. Discharge orders & Medications Discharge Orders: Discharge (Order); Ordered 08/21/22 Ordered By: Yash Lindsey Prescriptions: New oxycodone 5 mg Tablet 5 mg PO Q6H PRN (Reason: Pain, Moderate (4-6)) Qty: 20 0RF ciprofloxacin HCl [Cipro] 500 mg tablet 500 mg PO BID 5 Days Qty: 10 0RF Follow up/Referrals: Meera Langford DO [Primary Care Provider] - Yash Lindsey MD [Physician] - Diet/Activity/Treatments Diet: Diet as Tolerated Activity: As tolerated Other treatments: Mqpx-bve-stbusud Tylenol and/or ibuprofen may be used for additional pain relief. [id number] stool softeners and/or MiraLax may be used as needed for constipation. Skin/Wound/Dressing Care Report to your healthcare provider any signs of infection, such as:: chills, fever, increased pain, unusual drainage and unusual redness Dressing: Dressings may be removed on the evening of 08/22/2022 Visit Report/Discharge Packet Instructions: DI for Hysterectomy, DI for Laparoscopy Stand Alone Forms: Surgery Discharge Print Language: Irish Discharge Data Primary Care Provider: Meera Langford Attending Provider: Yash Lindsey Quality VTE Deep Vein Thrombosis/Pulmonary Embolism Present on Admission: No
--- NOTE | 2022-08-21 13:29 | PC.NURSE ---
Pt is A&Ox3, VSS, weaned to RA this a.m. tolerating well. She is able to sit in the chair for breakfast. She reports significant pain to R shoulder, upper-mid abdomen and vaginal region at 6-8/10. She reports pain well controlled with prn oxycodone and tylenol. MD Lindsey at bedside evaluating patient this a.m. and per orders turner catheter discontinued. Approximately 3 hours later patient is able to void 650cc clear yellow urine PVR<30. Patient with allevyn dressings c/d/i to abodmen c/d/i. No vaginal bleeding observed. After lunch OBGYN returns and clears her for discharge home. She verbalizes understanding of activity limitations, site care, medications, s/sx of infection as well as complications and follow up appointment. At approximately 1325 she is escorted via w/ch with all of her personal belongings to private vehicle with spouse for discharge home.
== END 2022-08-21 13:30 | disposition home or self-care (01) ==
LOC: OR 12:03 → AC 17:19
PROVIDERS: PCP Family Medicine; Referring Provider Obstetrics & Gynecology; Visit Provider Obstetrics & Gynecology
PROC: 0UT94ZZ Resection of Uterus, Percutaneous Endoscopic Approach (ICD-10-PCS; CPT 58571; principal; 2022-08-20 13:30)
PROC: 0TSD0ZZ Reposition Urethra, Open Approach (ICD-10-PCS; CPT 58571; 2022-08-20 13:30)
DX: C53.0 Malignant neoplasm of endocervix (principal); N39.3 Stress incontinence (female) (male); Z20.822 Contact with and (suspected) exposure to COVID-19; N83.8 Other noninflammatory disorders of ovary, fallopian tube and broad ligament
CPT/HCPCS: 58571; 57288; 36415; 85025; 87635; C9803; C1771; J0131; J0690; J1100; J2250; J2270; J2405; J2704; J2795; J3010

== ENCOUNTER → 2023-03-09 15:38 | Outpatient (CLI) | payer OTHER, SELFPAY ==
[2023-02-11 12:00] VITALS: BMI 31.2
== END ==
PROVIDERS: PCP Student in an Organized Health Care Education/Training Program; Referring Provider Family Medicine; Visit Provider Family Medicine
DX: Z23 Encounter for immunization (principal)
CPT/HCPCS: 90471; 90686

== ENCOUNTER → 2023-03-24 06:33 | Outpatient (CLI) | payer OTHER, SELFPAY ==
[2023-02-11 12:00] VITALS: BMI 31.2
[2023-03-24 07:57] LABS: Alanine Aminotransferase 19 IU/L (<35); Albumin 4.3 g/dL (3.5-5.0); Albumin Globulin Ratio 1.5 (1.0-2.8); Alkaline Phosphatase 73 U/L (38-126); Aspartate Aminotransferase 27 IU/L (14-36); BUN Creatinine Ratio 19.4 (6-22); Bilirubin Total 1.3 mg/dL (0.2-1.3); Blood Urea Nitrogen 14 mg/dL (7-17); Calcium 9.6 mg/dL (8.4-10.2); Carbon Dioxide 29 mmol/L (22-32); Chloride 102 mmol/L (98-107); Cholesterol 245 mg/dL (140-199); Estimated Glomerular Filt Rate > 60 mL/min (>60); Globulin 2.8 g/dL (1.7-4.1); Glucose 89 mg/dL (70-100); HDL Cholesterol 80 mg/dL (40-60); HEMOLYSIS < 15 (0-50); LDL Cholesterol Calculated 147 mg/dL (<100); Potassium 4.6 mmol/L (3.4-5.1); Sodium 137 mmol/L (137-145); Total Protein 7.1 g/dL (6.3-8.2); Triglycerides 88 mg/dL (35-150)
[2023-03-24 08:10] LABS: Add Manual Diff / Slide Review NO; Basophils Absolute Auto 0 /uL (0-100); Basophils Percent Auto 0.3 % (0-2); Eosinophils Absolute Auto 100 /uL (0-450); Eosinophils Percent Auto 1.9 % (2-4); Hematocrit 40.9 % (36-46); Lymphocytes Absolute Auto 1500 /uL (1100-4500); Lymphocytes Percent Auto 24.5 % (25-40); Mean Corpuscular HGB Conc 34.2 % (30-36); Mean Corpuscular Hemoglobin 29.7 PG (26-34); Mean Corpuscular Volume 86.9 fL (80-100); Monocytes Absolute Auto 400 /uL (0-900); Neutrophils Absolute Auto 4100 /uL (1500-7000); Neutrophils Percent Auto 67.3 % (50-75); Platelet Count 216 X10^3/uL (150-400); Red Blood Cell Count 4.71 X10^6/uL (4.0-5.2); Red Cell Distribution Width 13.2 % (11.6-14.8); White Blood Cell Count 6.1 X10^3/uL (4.5-11.0)
[2023-03-24 08:13] LABS: Follicle Stimulating Hormone 5.21 mIU/mL
[2023-03-24 08:26] LABS: TSH w/ Reflex to FT4 0.38 uIU/mL (0.47-4.68)
[2023-03-24 08:55] LABS: Free T4, Direct Thyroxine 0.95 ng/dL (0.78-2.19)
== END ==
PROVIDERS: PCP Student in an Organized Health Care Education/Training Program; Referring Provider Student in an Organized Health Care Education/Training Program; Visit Provider Student in an Organized Health Care Education/Training Program
DX: R23.2 Flushing (principal); E66.9 Obesity, unspecified
CPT/HCPCS: 36415; 80053; 80061; 83001; 84439; 84443; 85025

== ENCOUNTER → 2023-06-29 06:30 | Outpatient (CLI) | payer OTHER, SELFPAY ==
[2023-02-11 12:00] VITALS: BMI 31.2
[2023-06-29 08:53] LABS: Free T3, Triiodothyronine Free 3.28 pg/mL (2.77-5.27); Free T4, Direct Thyroxine 0.93 ng/dL (0.78-2.19)
[2023-06-29 09:06] LABS: Thyroid Stimulating Hormone 0.687 uIU/mL (0.47-4.68)
== END ==
LOC: LAB 06:31
PROVIDERS: PCP Student in an Organized Health Care Education/Training Program; Referring Provider Student in an Organized Health Care Education/Training Program; Visit Provider Student in an Organized Health Care Education/Training Program
DX: E05.90 Thyrotoxicosis, unspecified without thyrotoxic crisis or storm (principal)
CPT/HCPCS: 36415; 84439; 84443; 84481

== ENCOUNTER → 2024-04-10 10:10 | Outpatient (CLI) | payer OTHER, SELFPAY ==
[2023-02-11 12:00] VITALS: BMI 31.2
== END ==
PROVIDERS: PCP Student in an Organized Health Care Education/Training Program; Referring Provider Internal Medicine; Visit Provider Internal Medicine
DX: Z23 Encounter for immunization (principal)
CPT/HCPCS: 90471; 90656